=== PATIENT | male | born 1970 | race Caucasian/White ===

== ENCOUNTER 2019-01-16 13:47 | Emergency (ER) | payer OTHER ==
[2019-01-16 14:13] VITALS: PULSE 79; TEMP 97.3; BMI 31.6
[2019-01-16] MEDS ORDERED: ACETAMINOPHEN/CAFFEINE/BUTALBITAL 1 TAB PO ONE (14:59)
[2019-01-16] MEDS ORDERED: ACETAMINOPHEN/CAFFEINE/BUTALBITAL 1 TAB ONE (15:03)
[2019-01-16] MEDS ORDERED: LISINOPRIL 10 MG TABLET (FP) PO ONE (15:33)
--- NOTE | 2019-01-16 15:33 | PDOC ---
History of Present Illness - General Chief Complaint: Migraine Headache Stated Complaint: MIGRAINE HEADACHE Time Seen by Provider: 01/16/19 14:54 History Source: Patient Exam Limitations: No Limitations - History of Present Illness Initial Comments: 01/16/19 15:25 Patient is 48M with history of migraines, htn, hld, and asthma here today complaining of his typical migraine headache. He states that it started insidiously yesterday with pain on the right side of his face with associated light and sound sensitivity. He states that he is coming in today because he ran out of his fioricet medication. Endorses associated nausea. Denies vomiting , fevers, chills. Denies chest pain, weakness, shortness of breath. Past History - Past Medical History Allergies/Adverse Reactions: Allergies Allergy/AdvReac Type Severity Reaction Status Date / Time No Known Allergies Allergy Verified 01/16/19 14:09 Home Medications: Ambulatory Orders Acetaminophen/Caffeine/Butalb [Fioricet -] 1 tab PO Q6H PRN #14 tablet MDD 4 tabs 01/16/19 Lisinopril [Prinivil] 10 mg PO DAILY 01/16/19 Metoprolol Succinate [Toprol Xl] 100 mg PO DAILY 01/16/19 Asthma: Yes COPD: No HTN: Yes Hypercholesterolemia: Yes Other medical history: MIGRANES - Immunization History Immunization Up to Date: Yes - Suicide/Smoking/Psychosocial Hx Smoking History: Current every day smoker Number of Cigarettes Smoked Daily: 10 Information on smoking cessation initiated: No Hx Alcohol Use: No Drug/Substance Use Hx: No Review of Systems - Review of Systems Able to Perform ROS?: Yes Comments:: 01/16/19 15:37 GENERAL/CONSTITUTIONAL: No fever or chills. No weakness. HEAD, EYES, EARS, NOSE AND THROAT: No change in vision. No sore throat. CARDIOVASCULAR: No chest pain or shortness of breath RESPIRATORY: No cough, wheezing, or hemoptysis. GASTROINTESTINAL: No nausea, vomiting, diarrhea or constipation. GENITOURINARY: No dysuria, frequency, or change in urination. MUSCULOSKELETAL: No joint or muscle swelling or pain. No neck or back pain. SKIN: No rash NEUROLOGIC: +headache, no vertigo, loss of consciousness, or change in strength/ sensation. ENDOCRINE: No increased thirst. No abnormal weight change HEMATOLOGIC/LYMPHATIC: No anemia, easy bleeding, or history of blood clots. ALLERGIC/IMMUNOLOGIC: No hives or skin allergy. *Physical Exam - Vital Signs Last Vital Signs Temp Pulse Resp BP Pulse Ox 97.3 F L 79 17 164/111 H 98 01/16/19 14:10 01/16/19 14:10 01/16/19 14:10 01/16/19 14:10 01/16/19 14:10 - Physical Exam Comments: 01/16/19 15:37 GENERAL: Awake, alert, and fully oriented, in no acute distress, in darkened room HEAD: No signs of trauma, normocephalic, atraumatic EYES: PERRLA, EOMI, sclera anicteric, conjunctiva clear ENT: Auricles normal inspection, hearing grossly normal, nares patent, oropharynx clear without exudates. Moist mucosa NECK: Normal ROM, supple, no lymphadenopathy, JVD, or masses LUNGS: No distress, speaks full sentences, clear to auscultation bilaterally HEART: Regular rate and rhythm, normal S1 and S2, no murmurs, rubs or gallops, peripheral pulses normal and equal bilaterally. ABDOMEN: Soft, nontender, normoactive bowel sounds. No guarding, no rebound. No masses EXTREMITIES: Normal inspection, Normal range of motion, no edema. No clubbing or cyanosis. NEUROLOGICAL: Cranial nerves II through XII grossly intact. Normal speech, normal gait, no focal sensorimotor deficits SKIN: Warm, Dry, normal turgor, no rashes or lesions noted. Moderate Sedation - Procedure Monitoring Vital Signs: Procedure Monitoring Vital Signs Temperature 97.3 F L 01/16/19 14:10 Pulse Rate 79 01/16/19 14:10 Respiratory Rate 17 01/16/19 14:10 Blood Pressure 164/111 H 01/16/19 14:10 O2 Sat by Pulse Oximetry (%) 98 01/16/19 14:10 ED Treatment Course - Medications Given in the ED: ED Medications Discontinued Medications Generic Name Dose Route Start Last Admin Trade Name Freq PRN Reason Stop Dose Admin Acetaminophen/Butalbital/Caffeine 2 tablet 01/16/19 14:59 01/16/19 15:05 Fioricet - PO 01/16/19 15:00 2 tablet ONCE ONE Administration Medical Decision Making - Medical Decision Making 01/16/19 15:39 Patient is 48M with history of migraines, asthma, htn, hld here today with headache typical for his migraine, requesting his home medication of fioricet. Vitals wnl. Patient given fioricet and pain had resolved. When blood pressure rechecked, bp was 199/115. Patient reports non-compliance with his lisinopril and metoprolol. Given home medications, will re-evaluate. Do not believe head ct is necessary given symptoms consistent with migraine, normal evaluation and physical. 01/16/19 16:19 Repeat BP 200/110. Patient is demanding to go home, will discharge as AMA. Refusing further testing and treatment. *DC/Admit/Observation/Transfer Diagnosis at time of Disposition: Migraine headache - Discharge Dispostion Disposition: HOME Condition at time of disposition: Stable Decision to Admit order: No - Prescriptions Prescriptions: Acetaminophen/Caffeine/Butalb [Fioricet -] 1 tab PO Q6H PRN #14 tablet MDD 4 tabs PRN Reason: Headache - Referrals - Patient Instructions Printed Discharge Instructions: DI for Migraine Additional Instructions: Please follow up with your neurologist this week. Please return if you have any new, worsening or concerning symptoms. You left against medical advice today, you are welcome to return at any time. - Post Discharge Activity
[2019-01-16] MEDS ORDERED: LISINOPRIL 5 MG TABLET (FP) ONE (15:41)
[2019-01-16 15:44] VITALS: BP 199/115
--- NOTE | 2019-01-16 15:52 | PDOC ---
Attending Attestation - Resident Resident Name: SandrogaliJaquan - ED Attending Attestation I have performed the following: I have examined & evaluated the patient, The case was reviewed & discussed with the resident, I agree w/resident's findings & plan, Exceptions are as noted - HPI HPI: 01/16/19 15:47 The patient is a 48 year old male, with a significant PMH of migraine, asthma, HLD, HTN, who presents to the emergency department with migraine headache. Pt states that he has had a headache since yesterday. It is associated with light sensitivity, nausea, and vomiting. Pt states that this feels exactly like his usual migraine headaches. Denies thunderclap, denies worst headache of life, denies neck pain/stiffness. Pt states that he came to the ER because he ran out of his fioricet, which he usually takes for his migraines. Pt states that he also ran out of his BP meds. The patient denies chest pain, shortness of breath, and dizziness. Denies fever, chills, diarrhea and constipation. Denies dysuria, frequency, urgency and hematuria. Allergies: NKA Social history: None reported - Physicial Exam PE: 01/16/19 15:49 GENERAL: Awake, alert, and fully oriented, in no acute distress. HEAD: No signs of trauma EYES: PERRLA, EOMI, sclera anicteric, conjunctiva clear ENT: Auricles normal inspection, hearing grossly normal, nares patent, oropharynx clear without exudates. Moist mucosa NECK: Nontender, no stepoffs, Normal ROM, supple, no lymphadenopathy, JVD, or masses LUNGS: Breath sounds equal, clear to auscultation bilaterally. No wheezes, and no crackles HEART: Regular rate and rhythm, normal S1 and S2, no murmurs, rubs or gallops ABDOMEN: Soft, nontender, normoactive bowel sounds. No guarding, no rebound. No masses EXTREMITIES: Normal range of motion, no edema. No clubbing or cyanosis. No cords, erythema, or tenderness NEUROLOGICAL: Cranial nerves II through XII intact. 5/5 strength and sensation in all extremities, Normal speech, normal gait, normal cerebellar function SKIN: Warm, Dry, normal turgor, no rashes or lesions noted. - Medical Decision Making 01/16/19 15:50 48 M with usual migraine headache. No new/different symptoms. No red flags for SAH/meningitis. No neuro deficits on exam. Pt requesting 2 fioricet. - Fioricet Pt noted to be hypertensive in ED. He states he was unable to take his home meds of lisinopril and metoprolol today due to his headache. - Home dose of BP meds given 01/16/19 16:31 Pt with persistently elevated BP. Although his headache has resolved at this time, I recommended further monitoring and CT of head to r/o acute intracranial pathology. However, pt refusing additional work up at this time, stating he feels completely fine and would like to leave AMA. The patient is clinically sober, free from distracting injury, appears to have intact insight and judgment and reason and in my opinion has the capacity to make decisions. The patient presented with headache. I have explained that I am concerned that this may represent a brain bleed or mass; they have verbalized an understanding of my concerns. I have told the patient that while their headache has resolved, they could still have intracranial pathology. I have discussed the need for CT imaging. I have told the patient that if they leave, they could get much worse, could become critically ill, and could possibly become disabled or . The patient is not willing to await a head CT. He is refusing any further care and is leaving against medical advice. I am unable to convince the patient to stay, I have asked them to return as soon as possible to complete their evaluation. I have answered all their questions.
== END 2019-01-16 16:30 | disposition left against medical advice (07) ==
LOC: JER 13:47
DX: G43.909 Migraine, unspecified, not intractable, without status migrainosus (principal); I10 Essential (primary) hypertension; E78.5 Hyperlipidemia, unspecified; J45.909 Unspecified asthma, uncomplicated; Z91.14 Patient's other noncompliance with medication regimen
CPT/HCPCS: 99282-25

== ENCOUNTER 2019-02-02 09:18 | Inpatient (IN) | payer OTHER ==
--- NOTE | 2019-02-02 10:50 | HP ---
CIWA Score Nausea/Vomitin Muscle Tremors: 2 Anxiety: 2 Agitation: 2 Paroxysmal Sweats: 2 Orientation: 0-Oriented Tacttile Disturbances: 1-Very Mild Itch/Numbness Auditory Disturbances: 1-Very Mild Visual Disturbances: 0-None Headache: 2-Mild CIWA-Ar Total Score: 14 - Admission Criteria [facility] Guidelines: Admission for Medically Managed Detox: Requires at least one of the followin. CIWA greater than 12 2. Seizures within the past 24 hours 3. Delirium tremens within the past 24 hours 4. Hallucinations within the past 24 hours 5. Acute intervention needed for co occurring medical disorder 6. Acute intervention needed for co occurring psychiatric disorder 7. Severe withdrawal that cannot be handled at a lower level of care (continued vomiting, continued diarrhea, abnormal vital signs) requiring intravenous medication and/or fluids 8. Admission ROS S - HPI Chief Complaint: i need help to stop drinking alcohol,and valium Allergies/Adverse Reactions: Allergies Allergy/AdvReac Type Severity Reaction Status Date / Time aspirin Allergy Unknown Verified 02/02/19 11:46 ketorolac [From Toradol] Allergy Verified 02/02/19 09:42 aspirin Allergy Uncoded 02/02/19 09:42 History of Present Illness: this 49 years old male with alcohol and valium,withdrawal symptom,need detox from alcohol,never been in detox before, history of hypertension run out of medication ,non compliance migraine headache nicotine dependence 2 packs/day,will give nicotine patch and gum seizure alcohol related last 11/19 no significant period of sobriety also has asthma - Ebola screening Have you traveled outside of the country in the last 21 days: No Have you had contact with anyone from an Ebola affected area: No Do you have a fever: No - Review of Systems Constitutional: Loss of Appetite, Malaise, Night Sweats, Changes in sleep, Weakness EENT: reports: Tearing, Nose Congestion Respiratory: reports: No Symptoms reported Cardiac: reports: No Symptoms Reported GI: reports: Diarrhea, Nausea, Vomiting, Abdominal cramping : reports: No Symptoms Reported Musculoskeletal: reports: Back Pain, Muscle Pain Neuro: reports: Headache, Seizure, Tremors Endocrine: reports: No Symptoms Reported Hematology: reports: No Symptoms Reported Psychiatric: reports: No Sypmtoms Reported Other Systems: Reviewed and Negative Patient History - Patient Medical History Hx Asthma: Yes (Pt is on MDI) Hx Chronic Obstructive Pulmonary Disease (COPD): No Hx Cardiac Disorders: Yes (CAD with 2 stents 08/18 in [place]) Hx Hypertension: Yes (on meds,non compliance) Hx Hypercholesterolemia: Yes (on medication) Hx Pacemaker: No HX Cerebrovascular Accident: No Hx Seizures: No Hx Diabetes: No Hx Gastrointestinal Disorders: No Hx Liver Disease: No Hx Genitourinary Disorders: No Hx Sexually Transmitted Disorders: No Hx Renal Disease (ESRD): No Hx Thyroid Disease: No Hx Human Immunodeficiency Virus (HIV): No (never been tested,did not want to betested) Hx Hepatitis C: No Hx Depression: No Hx Suicide Attempt: No Hx Bipolar Disorder: No Hx Schizophrenia: No Other Medical History: no suicidal,no homicidal - Patient Surgical History Past Surgical History: No Hx Cardiac Surgery: Yes (angioplasty with 2 stent in 08/18) - PPD History Previous Implant?: Yes Documented Results: Negative w/o proof Implanted On Prior [facility] Admission?: No PPD to be Administered?: Yes - Smoking Cessation Smoking history: Current every day smoker Aproximately how many cigarettes per day: 40 Hx Chewing Tobacco Use: No Initiated information on smoking cessation: Yes 'Breaking Loose' booklet given: 02/02/19 - Substance & Tx. History Hx Alcohol Use: Yes Hx Substance Use: No Substance Use Type: Alcohol, Tranquilizers Hx Substance Use Treatment: No - Substances abused Diazepam Substance route: Oral Frequency: Daily Amount used: 30mg Age of first use: 22 Date of last use: 01/31/19 Alcohol Substance route: Oral Frequency: Daily Amount used: 1 1/2 pt. tequila, 4 beers ( 12 oz cans) Age of first use: 22 Date of last use: 01/31/19 Other Other (specify): percocet Substance route: Oral Frequency: Daily Amount used: 50mg Age of first use: 27 Date of last use: 01/31/19 Family Disease History - Family Disease History Family Disease History: Other: Brother (alcohol,dsa), Sister (alcohol,dsa) Admission Physical Exam [facility] - Vital Signs Vital Signs: Vital Signs - 24 hr 02/02/19 09:37 Temperature 98.2 F Pulse Rate 77 Respiratory 18 Rate Blood Pressure 197/115 H - Physical General Appearance: Yes: Moderate Distress, Tremorous, Irritable, Sweating, Anxious HEENTM: Yes: Normal ENT Inspection, PAYAL, Pharynx Normal Respiratory: Yes: Lungs Clear, Normal Breath Sounds, No Respiratory Distress Neck: Yes: Within Normal Limits, Supple, Trachea in good position Breast: Yes: Within Normal Limits Cardiology: Yes: Within Normal Limits, Regular Rhythm, Regular Rate, S1, S2, Other (s/p angioplasty with stent) Abdominal: Yes: Within Normal Limits, Normal Bowel Sounds, Non Tender, Flat, Soft Genitourinary: Yes: Within Normal Limits Back: Yes: Muscle Spasm Musculoskeletal: Yes: Muscle Pain Extremities: Yes: Within Normal Limits, Normal Range of Motion, Tremors 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, Motor Strength 5/5 Integumentary: Yes: Dry Lymphatic: Yes: Within Normal Limits - Diagnostic (1) Alcohol dependence with uncomplicated withdrawal Current Visit: Yes Status: Acute (2) Uncomplicated sedative, hypnotic or anxiolytic withdrawal Current Visit: Yes Status: Acute (3) Essential hypertension Current Visit: Yes Status: Acute (4) CAD (coronary artery disease) Current Visit: Yes Status: Acute (5) S/P angioplasty with stent Current Visit: Yes Status: Acute (6) Nicotine dependence Current Visit: Yes Status: Acute (7) Alcohol related seizure Current Visit: Yes Status: Acute (8) Asthma Current Visit: Yes Status: Acute (9) Migraine headache Current Visit: No Status: Acute Cleared for Admission [facility] - Detox or Rehab [facility] Level of Care: Medically Managed Detox Regimen/Protocol: Valium Breathalyzer - Breathalyzer Breathalyzer: 0 POC Urine test - Result Urine Test Results: Negative - NO line present Urine Drug Screen - Test Device Lot number: [id number] Expiration date: 01/29/20 - Control Is test valid?: Yes - Results Drug screen NEGATIVE: No Urine drug screen results: BAR-Barbiturates Inpatient Rehab Admission - Rehab Decision to Admit Inpatient rehab admission?: No
[2019-02-02] MEDS ORDERED: ACETAMINOPHEN 325 MG TABLET (FP) PO PRN ×2 (11:02)
[2019-02-02] MEDS ORDERED: MAG HYDROX/AL HYDROX/SIMETH 30 ML UNIT-DOSE CUP PO PRN (11:02)
[2019-02-02] MEDS ORDERED: MAGNESIUM CITRATE 300 ML BOTTLE PO PRN (11:02)
[2019-02-02] MEDS ORDERED: BISMUTH SUBSALICYLATE 524 MG/30 ML UD PO PRN (11:02)
[2019-02-02] MEDS ORDERED: IBUPROFEN 400 MG TABLET (FP) PO PRN (11:02)
[2019-02-02] MEDS ORDERED: METHOCARBAMOL 500 MG TABLET PO PRN (11:02)
[2019-02-02] MEDS ORDERED: MELATONIN 5 MG TABLETS PO PRN (11:02)
[2019-02-02] MEDS ORDERED: MAGNESIUM HYDROX 2400MG/30ML ORAL SUSPENSION 30 ML CUP PO PRN (11:02)
[2019-02-02] MEDS ORDERED: MENTHOL/PHENOL 1 EACH UD MM PRN (11:02)
[2019-02-02] MEDS ORDERED: NICOTINE POLACRILEX 2 MG GUM BUC PRN (11:02)
[2019-02-02] MEDS ORDERED: ALBUTEROL SO4 8 GM HFA INHALER IH PRN (11:07)
[2019-02-02] MEDS ORDERED: cloNIDine HCL 0.1 MG TABLET PO ONE (11:50)
[2019-02-02] MEDS ORDERED: diazePAM 5 MG TABLET PO ONE (11:55)
[2019-02-02] MEDS: CLOPIDOGREL BISULFATE 75 MG TABLET (FP) PO SCH (12:14)
[2019-02-02] MEDS: LISINOPRIL 10 MG TABLET (FP) PO SCH (12:14)
[2019-02-02] MEDS: NICOTINE 21 MG/24 HOURS TOPICAL PATCH TD SCH (12:22)
[2019-02-02] MEDS: BUDESONIDE/FORMETEROL FUMARATE 160/4.5 mcg INHALER IH SCH ×2 (12:23→22:35)
[2019-02-02] MEDS: diazePAM 5 MG TABLET PO SCH ×2 (14:15→22:32)
[2019-02-02 15:50] LABS: HEMATOCRIT 44.1 % (35.4-49); HEMOGLOBIN 14.6 GM/dL (11.7-16.9); MCH 30.2 pg (25.7-33.7); MCHC 33.2 g/dl (32.0-35.9); MEAN CELL VOLUME 91.1 fl (80-96); MEAN PLT VOLUME 10.2 fl (7.5-11.1); PLATELET COUNT 254 K/MM3 (134-434); RBC 4.84 M/mm3 (4.00-5.60); RDW 15.2 % (11.9-15.9); WHITE BLOOD COUNT 6.9 K/mm3 (4.0-10.0)
[2019-02-02 16:55] LABS: ALK PHOS 207 U/L (45-117); ANION GAP 9 MMOL/L (8-16); BILIRUBIN,TOTAL 0.2 mg/dL (0.2-1); BLOOD UREA NITROGEN 13 mg/dL (7-18); CALCIUM 9.6 mg/dL (8.5-10.1); CHLORIDE 104 mmol/L (98-107); CO2 28 mmol/L (21-32); CREATININE 0.7 mg/dL (0.55-1.3); GLUCOSE,RANDOM 88 mg/dL (74-106); POTASSIUM 3.8 mmol/L (3.5-5.1); SGOT/AST 15 U/L (15-37); SGPT/ALT 20 U/L (13-61); SODIUM 141 mmol/L (136-145); TOT PROT 7.5 g/dl (6.4-8.2)
[2019-02-02] MEDS: diazePAM 5 MG TABLET PO PRN (19:05)
[2019-02-02] MEDS: THIAMINE HCL 100 MG TABLET (FP) PO SCH (22:32)
[2019-02-02] MEDS: ATORVASTATIN CA 20 MG TABLET (FP) PO SCH (22:32)
[2019-02-02 23:24] LABS: URINE APPEARANCE CLEAR; URINE BILIRUBIN NEGATIVE (NEGATIVE); URINE COLOR YELLOW; URINE GLUCOSE (UA) NEGATIVE (NEGATIVE); URINE KETONE NEGATIVE (NEGATIVE); URINE LEUK ESTERASE NEGATIVE (NEGATIVE); URINE NITRITE NEGATIVE (NEGATIVE); URINE PROTEIN NEGATIVE (NEGATIVE); URINE UROBILINOGEN 0.2 mg/dL (0.2-1.0)
[2019-02-03] MEDS: diazePAM 5 MG TABLET PO SCH ×3 (06:14→22:53)
[2019-02-03] MEDS ORDERED: cloNIDine HCL 0.1 MG TABLET PO ONE (06:54)
--- NOTE | 2019-02-03 07:23 | PN ---
S Progress Note Note: Called to see patient whose B/P was elevated and heart rate was 152. EKG done and indicated HR: 64, NSR w/ non=specific T Wave abnormality. Alert and oriented. Denies chest pain or SOB. Ambulating - steady gait.
--- NOTE | 2019-02-03 09:37 | PN ---
S CIWA - CIWA Score Nausea/Vomitin Muscle Tremors: 2 Anxiety: 2 Agitation: 2 Paroxysmal Sweats: 1-Minimal Palms Moist Orientation: 0-Oriented Tacttile Disturbances: 1-Very Mild Itch/Numbness Auditory Disturbances: 1-Very Mild Visual Disturbances: 0-None Headache: 2-Mild CIWA-Ar Total Score: 13 [facility] Progress Note (SOAP) Subjective: alert,irritable,anxious,interrupted sleep,tremor,pain in the body Objective: 02/03/19 09:34 Vital Signs Temperature 97.0 F L 02/03/19 09:25 Pulse Rate 68 02/03/19 09:25 Respiratory Rate 20 02/03/19 09:25 Blood Pressure 158/106 H 02/03/19 09:25 O2 Sat by Pulse Oximetry (%) Laboratory Last Values WBC 6.9 K/mm3 (4.0-10.0) 02/02/19 11:00 RBC 4.84 M/mm3 (4.00-5.60) 02/02/19 11:00 Hgb 14.6 GM/dL (11.7-16.9) 02/02/19 11:00 Hct 44.1 % (35.4-49) 02/02/19 11:00 MCV 91.1 fl (80-96) 02/02/19 11:00 MCH 30.2 pg (25.7-33.7) 02/02/19 11:00 MCHC 33.2 g/dl (32.0-35.9) 02/02/19 11:00 RDW 15.2 % (11.9-15.9) 02/02/19 11:00 Plt Count 254 K/MM3 (134-434) 02/02/19 11:00 MPV 10.2 fl (7.5-11.1) 02/02/19 11:00 Sodium 141 mmol/L (136-145) 02/02/19 11:00 Potassium 3.8 mmol/L (3.5-5.1) 02/02/19 11:00 Chloride 104 mmol/L (98-107) 02/02/19 11:00 Carbon Dioxide 28 mmol/L (21-32) 02/02/19 11:00 Anion Gap 9 MMOL/L (8-16) 02/02/19 11:00 BUN 13 mg/dL (7-18) 02/02/19 11:00 Creatinine 0.7 mg/dL (0.55-1.3) 02/02/19 11:00 Creat Clearance w eGFR 119.37 (>60) 02/02/19 11:00 Random Glucose 88 mg/dL (74-106) 02/02/19 11:00 Calcium 9.6 mg/dL (8.5-10.1) 02/02/19 11:00 Total Bilirubin 0.2 mg/dL (0.2-1) 02/02/19 11:00 AST 15 U/L (15-37) 02/02/19 11:00 ALT 20 U/L (13-61) 02/02/19 11:00 Alkaline Phosphatase 207 U/L (45-117) H 02/02/19 11:00 Total Protein 7.5 g/dl (6.4-8.2) 02/02/19 11:00 Albumin 4.0 g/dl (3.4-5.0) 02/02/19 11:00 Urine Color Yellow 02/02/19 16:27 Urine Appearance Clear 02/02/19 16:27 Urine pH 7.0 (5.0-8.0) 02/02/19 16:27 Ur Specific [place] 1.007 (1.010-1.035) L 02/02/19 16:27 Urine Protein Negative (NEGATIVE) 02/02/19 16:27 Urine Glucose (UA) Negative (NEGATIVE) 02/02/19 16:27 Urine Ketones Negative (NEGATIVE) 02/02/19 16:27 Urine Blood Negative (NEGATIVE) 02/02/19 16:27 Urine Nitrite Negative (NEGATIVE) 02/02/19 16:27 Urine Bilirubin Negative (NEGATIVE) 02/02/19 16:27 Urine Urobilinogen 0.2 mg/dL (0.2-1.0) 02/02/19 16:27 Ur Leukocyte Esterase Negative (NEGATIVE) 02/02/19 16:27 RPR Titer Nonreactive (NONREACTIVE) 02/02/19 11:00 Assessment: withdrawal symptom Plan: continue detox
[2019-02-03] MEDS ORDERED: PRENATAL VITAMINS W/ FOLIC ACID TABLET (FP) PO SCH (10:00)
[2019-02-03] MEDS: diazePAM 5 MG TABLET PO PRN ×2 (10:27→17:22)
[2019-02-03] MEDS: NICOTINE 21 MG/24 HOURS TOPICAL PATCH TD SCH (10:27)
[2019-02-03] MEDS: CLOPIDOGREL BISULFATE 75 MG TABLET (FP) PO SCH (10:27)
[2019-02-03] MEDS: LISINOPRIL 10 MG TABLET (FP) PO SCH (10:27)
[2019-02-03] MEDS: BUDESONIDE/FORMETEROL FUMARATE 160/4.5 mcg INHALER IH SCH ×2 (10:28→22:54)
--- NOTE | 2019-02-03 12:25 | EKG ---
Test Reason : Blood Pressure : / mmHG Vent. Rate : 067 BPM Atrial Rate : 067 BPM P-R Int : 168 ms QRS Dur : 098 ms QT Int : 408 ms P-R-T Axes : 065 -31 082 degrees QTc Int : 431 ms NORMAL SINUS RHYTHM LEFT AXIS DEVIATION ABNORMAL ECG NO PREVIOUS ECGS AVAILABLE Confirmed by CELESTE LESLIE MD ([id number]) on 02/03/2019 12:25:04 PM Referred By: Confirmed By:CELESTE LESLIE MD
--- NOTE | 2019-02-03 12:25 | EKG ---
Test Reason : Blood Pressure : / mmHG Vent. Rate : 064 BPM Atrial Rate : 064 BPM P-R Int : 170 ms QRS Dur : 080 ms QT Int : 354 ms P-R-T Axes : 068 -11 082 degrees QTc Int : 365 ms NORMAL SINUS RHYTHM NONSPECIFIC T WAVE ABNORMALITY ABNORMAL ECG WHEN COMPARED WITH ECG OF 02-FEB-2019 10:25, NON-SPECIFIC CHANGE IN ST SEGMENT IN ANTERIOR LEADS NONSPECIFIC T WAVE ABNORMALITY, WORSE IN LATERAL LEADS QT HAS SHORTENED Confirmed by MARIAMA MITCHELL, CELESTE ([id number]) on 02/03/2019 12:25:13 PM Referred By: DAHIANA Confirmed By:CELESTE LESLIE MD
[2019-02-03] MEDS: ATORVASTATIN CA 20 MG TABLET (FP) PO SCH (22:53)
[2019-02-03] MEDS: THIAMINE HCL 100 MG TABLET (FP) PO SCH (22:54)
[2019-02-03] MEDS: hydrOXYzine PAMOATE 25 MG CAPSULE (FP) PO PRN (23:01)
[2019-02-04] MEDS ORDERED: diazePAM 5 MG TABLET PO ONE (06:00)
[2019-02-04 06:11] VITALS: BP 156/104; PULSE 62; TEMP 97.7
[2019-02-04] MEDS: hydrOXYzine PAMOATE 25 MG CAPSULE (FP) PO PRN (07:32)
--- NOTE | 2019-02-04 09:09 | DS ---
[facility] Detox Discharge Summary Admission Date: 02/02/19 Discharge Date: 02/04/19 - History Additional Comments: Pt came up to this provider requesting to leave, states "I just want to leave, I don't feel comfortable anymore". He did not explain what he meant despite repeated enquiries to see if there was anything that could be done to make him feel better. He states he does not have a PMD because "my other doctor stopped accepting [employer]". 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 Pt was encouraged to call his insurance company for help with linking up with a PMD who accepts [employer] insurance. Prescriptions of his meds x 2 wks were sent to [place] per pt's request. He verbalized understanding to go pick them up today. Provider reiterated the need for pt to follow up with Cardiology appointment especially as he is on the anticoagulant. Pt understands that he is leaving AMA and verbalizes understanding the risks involved. He was in no acute distress, he was A & O x 3 and had steady gait. - Physical Exam Results Vital Signs: Vital Signs Temperature 97.7 F 02/04/19 06:00 Pulse Rate 62 02/04/19 06:00 Respiratory Rate 18 02/04/19 06:00 Blood Pressure 156/104 H 02/04/19 06:00 O2 Sat by Pulse Oximetry (%) - Medication Discharge Medications: Ambulatory Orders Acetaminophen/Caffeine/Butalb [Fioricet -] 1 tablet PO BID #4 tablet MDD 2 tabs 01/17/19 Albuterol Sulfate Inhaler - [Ventolin HFA Inhaler -] 2 inh PO Q4H PRN #1 inhaler 02/04/19 Clopidogrel Bisulfate [Plavix -] 75 mg PO DAILY 14 Days #14 tablet 02/04/19 Fluticasone/Salmeterol [Advair 250-50 Diskus] 1 each IH DAILY #1 blst.w.dev 04/19 Lisinopril [Prinivil] 10 mg PO DAILY 14 Days #14 tablet 02/04/19 Metoprolol Succinate [Toprol Xl] 100 mg PO DAILY 14 Days #14 tab.er.24h - AMA Did Patient Leave Against Medical Advice: Yes
== END 2019-02-04 09:40 | disposition left against medical advice (07) | DRG 770 ==
LOC: YASAS 09:18 → Y6N 11:30
PROVIDERS: ADMIT Surgery; ATTEND Surgery
PROC: HZ2ZZZZ Detoxification Services for Substance Abuse Treatment (ICD-10-PCS; principal; 2019-02-02)
DX: F11.23 Opioid dependence with withdrawal (principal); F10.230 Alcohol dependence with withdrawal, uncomplicated; F13.230 Sedative, hypnotic or anxiolytic dependence with withdrawal, uncomplicated; I25.10 Atherosclerotic heart disease of native coronary artery without angina pectoris; I10 Essential (primary) hypertension; Z95.5 Presence of coronary angioplasty implant and graft; E78.00 Pure hypercholesterolemia, unspecified; R00.0 Tachycardia, unspecified; J45.909 Unspecified asthma, uncomplicated; G40.509 Epileptic seizures related to external causes, not intractable, without status epilepticus; G43.909 Migraine, unspecified, not intractable, without status migrainosus; Z88.6 Allergy status to analgesic agent
CPT/HCPCS: 36415; 80053; 81003; 85027; 86593; 93005; 93010

== ENCOUNTER 2019-04-21 08:38 | Inpatient (IN) | payer OTHER ==
[2019-04-21 11:12] VITALS: BMI 29.4
--- NOTE | 2019-04-21 11:55 | HP ---
COWS - Scale Resting Pulse: 0= CT 80 or Below Sweatin=Flushed/Facial Moisture Restless Observation: 1= Difficult to Sit Still Pupil Size: 0= Normal to Room Light Bone or Joint Aches: 0= None Runny Nose/ Eye Tearin= None GI Upset > 30mins: 0= None Tremor Observation: 2= Slight Tremor Visible Yawning Observation: 0= None Anxiety or Irritability: 1=Feels Anxious/Irritable Goose Flesh Skin: 0=Smooth Skin COWS Score: 6 CIWA Score Nausea/Vomitin-No Nausea/No Vomiting Muscle Tremors: 2 Anxiety: 2 Agitation: 3 Paroxysmal Sweats: 2 Orientation: 0-Oriented Tacttile Disturbances: 0-None Auditory Disturbances: 0-None Visual Disturbances: 0-None Headache: 3-Moderate CIWA-Ar Total Score: 12 - Admission Criteria OASAS Guidelines: Admission for Medically Managed Detox: Requires at least one of the followin. CIWA greater than 12 2. Seizures within the past 24 hours 3. Delirium tremens within the past 24 hours 4. Hallucinations within the past 24 hours 5. Acute intervention needed for co occurring medical disorder 6. Acute intervention needed for co occurring psychiatric disorder 7. Severe withdrawal that cannot be handled at a lower level of care (continued vomiting, continued diarrhea, abnormal vital signs) requiring intravenous medication and/or fluids 8. Admission ROS [facility] Chief Complaint: ETOH withdrawal symptoms with Opiod/BZO dependence. Allergies/Adverse Reactions: Allergies Allergy/AdvReac Type Severity Reaction Status Date / Time aspirin Allergy Unknown Verified 04/21/19 11:02 ketorolac [From Toradol] Allergy Verified 04/21/19 11:02 aspirin Allergy Uncoded 04/21/19 11:02 History of Present Illness: Patient presents with ETOH detox symptoms. Patient is known to facility due to previous admission. Patient reports he started drinking at age 22, drinks 1.5 pints of tequila daily with last drink last night. Patient also buys non- prescribed Percocet/Valium but could not afford to buy medication for the past 4 -5 days. Patient reports taking 50mg of oxycodone daily with last dose 04/16/19 and 30mg of Valium with last dose 04/16/19. Patient denies hx of seizures, overdose and blackouts. PMH includes anxiety, tobacco dependence, HTN, HLD and asthma. Denies hx of depression, Bipolar disorder and Schizophrenia. No Si/HI or suicide attempts reported. DUR + bar (takes Fiorecet for headache) Istop negative. Exam Limitations: No Limitations - Ebola screening Have you traveled outside of the country in the last 21 days: No Have you had contact with anyone from an Ebola affected area: No Have you been sick,other than usual withdrawal symptoms: No Do you have a fever: No - Review of Systems Constitutional: Chills EENT: reports: No Symptoms Reported Respiratory: reports: No Symptoms reported Cardiac: reports: No Symptoms Reported GI: reports: Other (acid reflex) : reports: No Symptoms Reported Musculoskeletal: reports: No Symptoms Reported Integumentary: reports: Flushing Neuro: reports: Headache, Tremors Endocrine: reports: No Symptoms Reported Hematology: reports: No Symptoms Reported Psychiatric: reports: Orientated x3, Anxious Patient History - Patient Medical History Hx Anemia: No Hx Asthma: Yes (Pt is on MDI) Hx Chronic Obstructive Pulmonary Disease (COPD): No Hx Cancer: No Hx Cardiac Disorders: Yes (CAD with 2 stents 08/18 in [place]) Hx Congestive Heart Failure: No Hx Hypertension: Yes (on meds,non compliance) Hx Hypercholesterolemia: Yes (on medication) Hx Pacemaker: No HX Cerebrovascular Accident: No Hx Seizures: No Hx Dementia: No Hx Diabetes: No Hx Gastrointestinal Disorders: No Hx Liver Disease: No Hx Genitourinary Disorders: No Hx Sexually Transmitted Disorders: No Hx Renal Disease (ESRD): No Hx Thyroid Disease: No Hx Human Immunodeficiency Virus (HIV): No (never been tested,did not want to betested) Hx Hepatitis C: No Hx Depression: No Hx Suicide Attempt: No Hx Bipolar Disorder: No Hx Schizophrenia: No Other Medical History: anxiety - Patient Surgical History Past Surgical History: No Hx Cardiac Surgery: Yes (angioplasty with 2 stent in 08/18) Anesthesia Reaction: No - PPD History Previous Implant?: Yes Documented Results: Negative w/proof Date: 02/04/19 PPD to be Administered?: No - Smoking Cessation Smoking history: Current every day smoker Aproximately how many cigarettes per day: 40 Hx Chewing Tobacco Use: No Initiated information on smoking cessation: Yes 'Breaking Loose' booklet given: 04/21/19 - Substance & Tx. History Hx Alcohol Use: Yes Hx Substance Use: Yes Substance Use Type: Alcohol, Opiates, Tranquilizers - Substances abused Diazepam Substance route: Oral Frequency: Daily Amount used: 30mg Age of first use: 22 Date of last use: 04/19/19 Alcohol Substance route: Oral Frequency: Daily Amount used: 1 1/2 pt. tequila, 4 beers ( 12 oz cans) Age of first use: 22 Date of last use: 04/20/19 Other Other (specify): percocet Substance route: Oral Frequency: Daily Amount used: 50mg Age of first use: 27 Date of last use: 04/16/19 Family Disease History - Family Disease History Family Disease History: Other: Brother (alcohol,dsa), Sister (alcohol,dsa) Admission Physical Exam S - Vital Signs Vital Signs: Vital Signs - 24 hr 04/21/19 11:04 Temperature 97.2 F L Pulse Rate 61 Respiratory 20 Rate Blood Pressure 178/100 H - Physical General Appearance: Yes: Nourished, Appropriately Dressed, Tremorous, Anxious HEENTM: Yes: EOMI, Hearing grossly Normal, Normal ENT Inspection, Normocephalic , Normal Voice, PAYAL, Pharynx Normal Respiratory: Yes: Chest Non-Tender, Lungs Clear, Normal Breath Sounds, No Respiratory Distress, No Accessory Muscle Use Neck: Yes: No masses,lesions,Nodules, Supple, Trachea in good position Breast: Yes: Breast Exam Deferred Cardiology: Yes: Regular Rhythm, Regular Rate, S1, S2 Abdominal: Yes: Normal Bowel Sounds, Non Tender, Soft Genitourinary: Yes: Within Normal Limits Back: Yes: Normal Inspection Musculoskeletal: Yes: full range of Motion, Gait Steady Extremities: Yes: Normal Range of Motion, Non-Tender, Tremors Neurological: Yes: structures technician II-XII NML intact, Fully Oriented, Alert, Motor Strength 5/5, Normal Response, Other (anxious) Integumentary: Yes: Normal Color, Dry, Warm, Other (facial flushing) Lymphatic: Yes: Within Normal Limits - Diagnostic (1) Opioid dependence Current Visit: Yes Status: Chronic Qualifiers: Substance use status: uncomplicated Qualified Code(s): F11.20 - Opioid dependence, uncomplicated (2) Alcohol dependence with uncomplicated withdrawal Current Visit: Yes Status: Acute (3) Asthma Current Visit: Yes Status: Chronic Qualifiers: Asthma persistence: unspecified Asthma complication type: unspecified (4) CAD (coronary artery disease) Current Visit: No Status: Chronic Qualifiers: Coronary Disease-Associated Artery/Lesion type: unspecified vessel or lesion type Associated angina: without angina (5) Essential hypertension Current Visit: No Status: Chronic (6) Migraine headache Current Visit: No Status: Chronic Qualifiers: Migraine type: unspecified Status migrainosus presence: without status migrainosus (7) Nicotine dependence Current Visit: No Status: Chronic Qualifiers: Nicotine product type: unspecified (8) S/P angioplasty with stent Current Visit: Yes Status: Chronic (9) Benzodiazepine dependence Current Visit: Yes Status: Chronic Cleared for Admission [facility] - Detox or Rehab [facility] Level of Care: Medically Managed Detox Regimen/Protocol: Valium Claeared for Rehab Admission: No Breathalyzer - Breathalyzer Breathalyzer: 0 Urine Drug Screen - Test Device Lot number: [id number] Expiration date: 12/22/27 - Control Is test valid?: Yes - Results Drug screen NEGATIVE: No Urine drug screen results: BAR-Barbiturates Inpatient Rehab Admission - Rehab Decision to Admit Inpatient rehab admission?: No
[2019-04-21] MEDS ORDERED: ONDANSETRON *ODT* 4 MG TABLET SL PRN (11:59)
[2019-04-21] MEDS ORDERED: MAGNESIUM CITRATE 300 ML BOTTLE PO PRN (11:59)
[2019-04-21] MEDS ORDERED: BISMUTH SUBSALICYLATE 524 MG/30 ML UD PO PRN (11:59)
[2019-04-21] MEDS ORDERED: MAGNESIUM HYDROX 2400MG/30ML ORAL SUSPENSION 30 ML CUP PO PRN (11:59)
[2019-04-21] MEDS ORDERED: hydrOXYzine PAMOATE 25 MG CAPSULE (FP) PO PRN (11:59)
[2019-04-21] MEDS ORDERED: NICOTINE POLACRILEX 2 MG GUM BUC PRN (11:59)
[2019-04-21] MEDS ORDERED: ACETAMINOPHEN 325 MG TABLET (FP) PO PRN ×2 (11:59)
[2019-04-21] MEDS ORDERED: MELATONIN 5 MG TABLETS PO PRN (11:59)
[2019-04-21] MEDS ORDERED: MENTHOL/PHENOL 1 EACH UD MM PRN (11:59)
[2019-04-21] MEDS ORDERED: IBUPROFEN 400 MG TABLET (FP) PO PRN (11:59)
[2019-04-21] MEDS ORDERED: MAG HYDROX/AL HYDROX/SIMETH 30 ML UNIT-DOSE CUP PO PRN (11:59)
[2019-04-21] MEDS ORDERED: ALBUTEROL SO4 8 GM HFA INHALER IH PRN (12:02)
[2019-04-21] MEDS ORDERED: diazePAM 5 MG TABLET PO PRN (12:04)
[2019-04-21] MEDS: LISINOPRIL 10 MG TABLET (FP) PO SCH (12:53)
[2019-04-21] MEDS: diazePAM 5 MG TABLET PO SCH ×2 (14:45→22:39)
[2019-04-21 16:03] LABS: MCH 29.7 pg (25.7-33.7); MCHC 33.3 g/dl (32.0-35.9); MEAN CELL VOLUME 89.3 fl (80-96); MEAN PLT VOLUME 9.8 fl (7.5-11.1); PLATELET COUNT 277 K/MM3 (134-434); RBC 5.04 M/mm3 (4.00-5.60); RDW 14.5 % (11.9-15.9); WHITE BLOOD COUNT 7.1 K/mm3 (4.0-10.0)
[2019-04-21 16:15] LABS: ALBUMIN 4.2 g/dl (3.4-5.0); BILIRUBIN,TOTAL 0.2 mg/dL (0.2-1); BLOOD UREA NITROGEN 15.3 mg/dL (7-18); CALCIUM 9.3 mg/dL (8.5-10.1); CREATININE 0.8 mg/dL (0.55-1.3); TOT PROT 7.5 g/dl (6.4-8.2)
[2019-04-21 21:14] LABS: PH,URINE 5.5 (5.0-8.0); URINE APPEARANCE CLEAR; URINE BILIRUBIN NEGATIVE (NEGATIVE); URINE COLOR YELLOW; URINE GLUCOSE (UA) NEGATIVE (NEGATIVE); URINE KETONE NEGATIVE (NEGATIVE); URINE LEUK ESTERASE NEGATIVE (NEGATIVE); URINE NITRITE NEGATIVE (NEGATIVE); URINE PROTEIN NEGATIVE (NEGATIVE); URINE UROBILINOGEN 0.2 mg/dL (0.2-1.0)
[2019-04-21] MEDS: THIAMINE HCL 100 MG TABLET (FP) PO SCH (22:38)
[2019-04-21] MEDS: BUDESONIDE/FORMETEROL FUMARATE 80/4.5 mcg INHALER IH SCH (22:38)
[2019-04-22] MEDS: diazePAM 5 MG TABLET PO SCH ×3 (06:48→23:11)
[2019-04-22] MEDS: BUDESONIDE/FORMETEROL FUMARATE 80/4.5 mcg INHALER IH SCH ×2 (09:51→23:11)
[2019-04-22] MEDS: CLOPIDOGREL BISULFATE 75 MG TABLET (FP) PO SCH (09:52)
[2019-04-22] MEDS: PRENATAL VITAMINS W/ FOLIC ACID TABLET (FP) PO SCH (09:52)
[2019-04-22] MEDS: NICOTINE 21 MG/24 HOURS TOPICAL PATCH TD SCH (09:53)
[2019-04-22] MEDS: LISINOPRIL 10 MG TABLET (FP) PO SCH (09:55)
--- NOTE | 2019-04-22 10:31 | PN ---
S CIWA - CIWA Score Nausea/Vomitin-No Nausea/No Vomiting Muscle Tremors: 3 Anxiety: 3 Agitation: 2 Paroxysmal Sweats: 2 Orientation: 0-Oriented Tacttile Disturbances: 0-None Auditory Disturbances: 0-None Visual Disturbances: 0-None Headache: 0-None Present CIWA-Ar Total Score: 10 [facility] Progress Note (SOAP) Subjective: PATIENT C/O ANXIETY, SHAKES AND SWEATING. Objective: 04/22/19 10:30 Laboratory Tests 04/21/19 04/21/19 04/21/19 12:35 12:35 12:35 WBC 7.1 RBC 5.04 Hgb 15.0 Hct 45.0 MCV 89.3 MCH 29.7 MCHC 33.3 RDW 14.5 Plt Count 277 MPV 9.8 Sodium 140 Potassium 4.0 Chloride 106 Carbon Dioxide 27 Anion Gap 7 L BUN 15.3 Creatinine 0.8 Est GFR (CKD-EPI)AfAm 120.72 Est GFR (CKD-EPI)NonAf 104.16 Random Glucose 106 Calcium 9.3 Total Bilirubin 0.2 AST 18 ALT 37 Alkaline Phosphatase 210 H Total Protein 7.5 Albumin 4.2 Urine Color Urine Appearance Urine pH Ur Specific [place] Urine Protein Urine Glucose (UA) Urine Ketones Urine Blood Urine Nitrite Urine Bilirubin Urine Urobilinogen Ur Leukocyte Esterase RPR Titer Nonreactive 04/21/19 17:21 WBC RBC Hgb Hct MCV MCH MCHC RDW Plt Count MPV Sodium Potassium Chloride Carbon Dioxide Anion Gap BUN Creatinine Est GFR (CKD-EPI)AfAm Est GFR (CKD-EPI)NonAf Random Glucose Calcium Total Bilirubin AST ALT Alkaline Phosphatase Total Protein Albumin Urine Color Yellow Urine Appearance Clear Urine pH 5.5 D Ur Specific [place] 1.019 Urine Protein Negative Urine Glucose (UA) Negative Urine Ketones Negative Urine Blood Negative Urine Nitrite Negative Urine Bilirubin Negative Urine Urobilinogen 0.2 Ur Leukocyte Esterase Negative RPR Titer Vital Signs Temperature 97.9 F 04/22/19 09:02 Pulse Rate 59 L 04/22/19 09:02 Respiratory Rate 20 04/22/19 09:02 Blood Pressure 139/59 L 04/22/19 09:02 O2 Sat by Pulse Oximetry (%) PE: ALERT AND ORIENTED X 3 SKIN WARM, + FACIAL MOISTURE +PERLLA, EOMS INTACT BL EXT FULL ROM, AMB AD YARED, + TREMORS Assessment: 04/22/19 10:31 WITHDRAWAL SX Plan: CONTINUE DETOX MONITOR CLINICALLY
[2019-04-22] MEDS: THIAMINE HCL 100 MG TABLET (FP) PO SCH (23:11)
[2019-04-23] MEDS ORDERED: diazePAM 5 MG TABLET PO ONE (06:00)
[2019-04-23] MEDS: diazePAM 5 MG TABLET PO PRN ×3 (06:35→15:04)
[2019-04-23] MEDS: PRENATAL VITAMINS W/ FOLIC ACID TABLET (FP) PO SCH (09:58)
[2019-04-23] MEDS: BUDESONIDE/FORMETEROL FUMARATE 80/4.5 mcg INHALER IH SCH ×2 (09:58→22:07)
[2019-04-23] MEDS: NICOTINE 21 MG/24 HOURS TOPICAL PATCH TD SCH (09:58)
[2019-04-23] MEDS: LISINOPRIL 10 MG TABLET (FP) PO SCH (09:58)
[2019-04-23] MEDS: CLOPIDOGREL BISULFATE 75 MG TABLET (FP) PO SCH (09:58)
[2019-04-23] MEDS ORDERED: diazePAM 5 MG TABLET PO SCH (10:00)
--- NOTE | 2019-04-23 12:37 | PN ---
[facility] CIWA - CIWA Score Nausea/Vomitin-Mild Nausea/No Vomiting Muscle Tremors: 3 Anxiety: 2 Agitation: 2 Paroxysmal Sweats: 2 Orientation: 0-Oriented Tacttile Disturbances: 0-None Auditory Disturbances: 0-None Visual Disturbances: 0-None Headache: 0-None Present CIWA-Ar Total Score: 10 S Progress Note (SOAP) Subjective: Feels ok, symptoms controlled by medication. Patient refused to elaborate. Objective: 04/23/19 12:34 Last Vital Signs Temp Pulse Resp BP Pulse Ox 97.5 F L 54 L 18 149/69 04/23/19 09:37 04/23/19 09:37 04/23/19 09:37 04/23/19 09:37 Elevated b/p: has htn, on medication Laboratory Tests 04/21/19 04/21/19 04/21/19 12:35 12:35 12:35 WBC 7.1 RBC 5.04 Hgb 15.0 Hct 45.0 MCV 89.3 MCH 29.7 MCHC 33.3 RDW 14.5 Plt Count 277 MPV 9.8 Sodium 140 Potassium 4.0 Chloride 106 Carbon Dioxide 27 Anion Gap 7 L BUN 15.3 Creatinine 0.8 Est GFR (CKD-EPI)AfAm 120.72 Est GFR (CKD-EPI)NonAf 104.16 Random Glucose 106 Calcium 9.3 Total Bilirubin 0.2 AST 18 ALT 37 Alkaline Phosphatase 210 H Total Protein 7.5 Albumin 4.2 Urine Color Urine Appearance Urine pH Ur Specific [place] Urine Protein Urine Glucose (UA) Urine Ketones Urine Blood Urine Nitrite Urine Bilirubin Urine Urobilinogen Ur Leukocyte Esterase RPR Titer Nonreactive 04/21/19 17:21 WBC RBC Hgb Hct MCV MCH MCHC RDW Plt Count MPV Sodium Potassium Chloride Carbon Dioxide Anion Gap BUN Creatinine Est GFR (CKD-EPI)AfAm Est GFR (CKD-EPI)NonAf Random Glucose Calcium Total Bilirubin AST ALT Alkaline Phosphatase Total Protein Albumin Urine Color Yellow Urine Appearance Clear Urine pH 5.5 D Ur Specific [place] 1.019 Urine Protein Negative Urine Glucose (UA) Negative Urine Ketones Negative Urine Blood Negative Urine Nitrite Negative Urine Bilirubin Negative Urine Urobilinogen 0.2 Ur Leukocyte Esterase Negative RPR Titer Labs reviewed: alk phos 210 Assessment: 04/23/19 12:37 Withdrawal symptoms Noted with elevated alk phos level Plan: Continue detox Encouraged PO water hydration Elevated Alk phos level: repeat serum alk phos level
[2019-04-23] MEDS: diazePAM 5 MG TABLET PO SCH ×2 (13:07→22:07)
[2019-04-23] MEDS: THIAMINE HCL 100 MG TABLET (FP) PO SCH (22:07)
[2019-04-24] MEDS ORDERED: diazePAM 5 MG TABLET PO SCH (06:00)
[2019-04-24] MEDS ORDERED: cloNIDine HCL 0.1 MG TABLET PO ONE ×2 (07:44→08:15)
--- NOTE | 2019-04-24 07:48 | PN ---
[facility] Progress Note Note: Patient's blood pressure this morning was B/P 180/117 and B/P 159/95 respectively V Vital Signs - 8 hr 04/24/19 04/24/19 04/24/19 00:30 03:30 06:00 Temperature 97.3 F L Pulse Rate 55 L Respiratory 18 18 18 Rate Blood Pressure 180/117 H 04/24/19 07:15 Temperature Pulse Rate 51 L Respiratory 18 Rate Blood Pressure 159/95 Action: Clonidine 0.1mg tablet oral ordered
[2019-04-24 09:08] VITALS: BP 148/96; PULSE 62; TEMP 97.5
--- NOTE | 2019-04-24 09:22 | DS ---
[facility] Detox Discharge Summary Admission Date: 04/21/19 Discharge Date: 04/24/19 - History Present History: Alcohol Dependence, Opioid Dependence, Sedative Dependence - Physical Exam Results Vital Signs: Vital Signs Temperature 97.5 F L 04/24/19 09:08 Pulse Rate 62 04/24/19 09:08 Respiratory Rate 18 04/24/19 09:08 Blood Pressure 148/96 04/24/19 09:08 O2 Sat by Pulse Oximetry (%) - Treatment Hospital Course: Detox Protocol Followed, Detoxed Safely, Responded well, Discharged Condition Good, Rehab Referral Accepted - Medication Discharge Medications: Ambulatory Orders Albuterol Sulfate Inhaler - [Ventolin HFA Inhaler -] 2 inh PO Q4H PRN #1 inhaler 02/04/19 Clopidogrel Bisulfate [Plavix -] 75 mg PO DAILY 14 Days #14 tablet 02/04/19 Fluticasone/Salmeterol [Advair 250-50 Diskus] 1 each IH DAILY #1 blst.w.dev 04/19 Lisinopril [Prinivil] 10 mg PO DAILY 14 Days #14 tablet 02/04/19 Metoprolol Succinate [Toprol Xl] 100 mg PO DAILY 14 Days #14 tab.er.24h - Diagnosis (1) Alcohol dependence with uncomplicated withdrawal Current Visit: Yes Status: Chronic (2) Asthma Current Visit: Yes Status: Chronic Qualifiers: Asthma severity: mild Asthma persistence: unspecified Asthma complication type: unspecified Qualified Code(s): J45.909 - Unspecified asthma , uncomplicated (3) Benzodiazepine dependence Current Visit: Yes Status: Chronic (4) Opioid dependence Current Visit: Yes Status: Chronic Qualifiers: Substance use status: uncomplicated Qualified Code(s): F11.20 - Opioid dependence, uncomplicated (5) S/P angioplasty with stent Current Visit: Yes Status: Chronic (6) CAD (coronary artery disease) Current Visit: Yes Status: Chronic Qualifiers: Coronary Disease-Associated Artery/Lesion type: unspecified vessel or lesion type Associated angina: without angina (7) Essential hypertension Current Visit: No Status: Chronic (8) Nicotine dependence Current Visit: Yes Status: Chronic Qualifiers: Nicotine product type: cigarettes Substance use status: uncomplicated Qualified Code(s): F17.210 - Nicotine dependence, cigarettes, uncomplicated - AMA Did Patient Leave Against Medical Advice: No (pt refused referral; going home)
== END 2019-04-24 08:45 | disposition home or self-care (01) | DRG 773 ==
LOC: YASAS 08:38 → Y6N 12:24
PROVIDERS: ADMIT Surgery; ATTEND Surgery
PROC: HZ2ZZZZ Detoxification Services for Substance Abuse Treatment (ICD-10-PCS; principal; 2019-04-21)
DX: F10.230 Alcohol dependence with withdrawal, uncomplicated (principal); F11.20 Opioid dependence, uncomplicated; F13.20 Sedative, hypnotic or anxiolytic dependence, uncomplicated; F17.210 Nicotine dependence, cigarettes, uncomplicated; G43.909 Migraine, unspecified, not intractable, without status migrainosus; I25.10 Atherosclerotic heart disease of native coronary artery without angina pectoris; I10 Essential (primary) hypertension; Z95.5 Presence of coronary angioplasty implant and graft; E78.00 Pure hypercholesterolemia, unspecified; J45.909 Unspecified asthma, uncomplicated
CPT/HCPCS: 36415; 80053; 81003; 85027; 86593